=== PATIENT | female | born 1980 | race Caucasian/White ===

== ENCOUNTER 2016-10-17 14:26 | Day surgery (SDC) | payer BC, OTHER ==
[~2016-10-17] VITALS: Ht 180.3 cm; Wt 100.0 kg
[~2016-10-17 14:26] MED LIST: OXYC-302 PO; PREN1TAB56 PO
[2016-10-17] MEDS ORDERED: LACTATED RINGERS 1,000 ML IV SCH ×2 (14:51→15:03)
[2016-10-17 15:00] VITALS: BP 120/84
[2016-10-17 15:34] LABS: HEMOGLOBIN 14.2 g/dL (11.7-16.4)
[2016-10-17] MEDS ORDERED: MISOPROSTOL 200 MCG TABLET ONE (15:35)
[2016-10-17] MEDS ORDERED: OXYTOCIN 10 UNITS/ML, 1ML ONE (15:35)
[2016-10-17] MEDS ORDERED: METHYLERGONOVINE 0.2 MG/ML IM ONE (15:36)
[2016-10-17] MEDS ORDERED: SILVER NITRATE STICK TP ONE (15:36)
[2016-10-17] MEDS ORDERED: FENTANYL PF 100 MCG/2ML ONE ×2 (15:47)
[2016-10-17] MEDS ORDERED: MIDAZOLAM 1 MG/ML, 2ML ONE ×2 (15:47)
[2016-10-17] MEDS ORDERED: ONDANSETRON 2MG/ML, 2ML ONE (16:17)
[2016-10-17] MEDS ORDERED: KETOROLAC 30 MG/1 ML ONE (16:17)
[2016-10-17] MEDS ORDERED: BUPIVACAINE/PF-EPI 0.25% 1:200K ONE (16:31)
[2016-10-17] MEDS ORDERED: OXYcodone 5 MG/5 ML ORAL.SOL UDC PO PRN (17:00)
[2016-10-17] MEDS ORDERED: PROMETHAZINE 25 MG/ML, 1ML IV PRN (17:00)
[2016-10-17] MEDS ORDERED: ACETAMINOPHEN 325 MG TABLET PO PRN (17:00)
[2016-10-17] MEDS ORDERED: FENTANYL PF 100 MCG/2ML IV PRN (17:00)
[2016-10-17] MEDS ORDERED: HYDROmorphone 1 MG/ML, 1ML IV PRN (17:00)
[2016-10-17] MEDS ORDERED: MEPERIDINE/PF 25MG/0.5ML IVPush PRN (17:00)
[2016-10-17] MEDS ORDERED: ONDANSETRON 2MG/ML, 2ML IVPush PRN (17:00)
[2016-10-17] MEDS ORDERED: OXYcodone 5 MG/5 ML ORAL.SOL UDC ONE (17:02)
[2016-10-17] MEDS ORDERED: ACETAMINOPHEN 650 MG/20.3 ML UDC ONE ×2 (17:02→17:05)
[2016-10-17] MEDS ORDERED: ACETAMINOPHEN 325 MG TABLET ONE (17:02)
== END 2016-10-17 18:40 | disposition home or self-care (01) ==
LOC: OUT 14:26 → MERGE 14:26 → OUT 18:40
PROVIDERS: ATTEND Specialist
DX: O02.1 Missed abortion (principal); Z3A.01 Less than 8 weeks gestation of pregnancy; Z82.49 Family history of ischemic heart disease and other diseases of the circulatory system; Z80.9 Family history of malignant neoplasm, unspecified
CPT/HCPCS: 36415; 59820; 85027; J1885; J2405; J7120; 88305; J2250; J3010; J2210; J2590

== ENCOUNTER → 2018-06-01 | Outpatient (CLI) | payer OTHER ==
[2018-06-01 12:51] LABS: BASOPHILS # (AUTO) 0.03 x10^3/uL (0-0.1); BASOPHILS % (AUTO) 0 % (0-1); EOSINOPHILS # (AUTO) 0.16 x10^3/uL (0-0.4); EOSINOPHILS % (AUTO) 2 % (1-7); LYMPHOCYTES % (AUTO) 24 % (22-44); MD NO; MEAN CORPUSCULAR VOLUME 88.1 fL (80-100); MEAN PLATELET VOLUME 8.1 fL (7.4-10.4); MONOCYTES # (AUTO) 0.46 x10^3/uL (0.2-0.8); MONOCYTES % (AUTO) 4 % (2-9); NEUTROPHILS # (AUTO) 7.57 x10^3/uL (1.8-6.8); NEUTROPHILS % (AUTO) 70 % (42-75); PLATELET COUNT 298 x10^3/uL (130-400); RED BLOOD COUNT 4.39 x10^6/uL (3.82-5.3); RED CELL DISTRIBUTION WIDTH 13.7 % (9.6-15.2)
[2018-06-01 13:05] LABS: MICROSCOPIC NOT IND
[2018-06-01 13:10] LABS: CULTURE INDICATED? NO
== END | disposition home or self-care (01) ==
LOC: LAB 12:25
PROVIDERS: ATTEND Student in an Organized Health Care Education/Training Program
DX: Z34.82 Encounter for supervision of other normal pregnancy, second trimester (principal); Z3A.00 Weeks of gestation of pregnancy not specified
CPT/HCPCS: 36415; 81003; 85025; 86592; 86762; 86787; 86850; 86900; 87340; 87806; G0475

== ENCOUNTER → 2018-07-16 | Outpatient (CLI) | payer OTHER ==
[2018-07-16 09:08] LABS: MEAN CORPUSCULAR HEMOGLOBIN 29.7 pg (27.0-34.8); MEAN CORPUSCULAR HGB CONC 33.5 g/dL (32.4-35.8); MEAN CORPUSCULAR VOLUME 88.7 fL (80-100); MEAN PLATELET VOLUME 8.5 fL (7.4-10.4); PLATELET COUNT 262 x10^3/uL (130-400); RED BLOOD COUNT 4.23 x10^6/uL (3.82-5.3); RED CELL DISTRIBUTION WIDTH 13.7 % (9.6-15.2)
== END | disposition home or self-care (01) ==
LOC: LAB 07:54
PROVIDERS: ATTEND Student in an Organized Health Care Education/Training Program
DX: Z34.82 Encounter for supervision of other normal pregnancy, second trimester (principal); Z3A.00 Weeks of gestation of pregnancy not specified
CPT/HCPCS: 36415; 82950; 85027; 86592

== ENCOUNTER 2018-09-29 17:15 | Outpatient (CLI) | payer OTHER ==
[~2018-09-29] VITALS: Ht 180.3 cm; Wt 110.9 kg
[2018-09-29 17:28] VITALS: BP 127/71
[2018-09-29 17:37] LABS: BASOPHILS # (AUTO) 0.05 x10^3/uL (0-0.1); BASOPHILS % (AUTO) 0 % (0-1); EOSINOPHILS # (AUTO) 0.07 x10^3/uL (0-0.4); EOSINOPHILS % (AUTO) 1 % (1-7); LYMPHOCYTES # (AUTO) 3.09 x10^3/uL (1-3.4); LYMPHOCYTES % (AUTO) 22 % (22-44); MD NO; MEAN CORPUSCULAR HEMOGLOBIN 28.7 pg (27.0-34.8); MEAN CORPUSCULAR HGB CONC 33.2 g/dL (32.4-35.8); MEAN CORPUSCULAR VOLUME 86.4 fL (80-100); MEAN PLATELET VOLUME 8.8 fL (7.4-10.4); MONOCYTES # (AUTO) 0.67 x10^3/uL (0.2-0.8); MONOCYTES % (AUTO) 5 % (2-9); NEUTROPHILS % (AUTO) 72 % (42-75); PLATELET COUNT 285 x10^3/uL (130-400); RED BLOOD COUNT 4.62 x10^6/uL (3.82-5.3); RED CELL DISTRIBUTION WIDTH 13.5 % (9.6-15.2)
[2018-09-29 17:47] LABS: MICROSCOPIC NOT IND
[2018-09-29 17:50] LABS: ALANINE AMINOTRANSFERASE 17 U/L (12-78); ALBUMIN 2.9 g/dL (3.4-5.0); ANION GAP 11 mmol/L (5-15); CALCIUM 9.1 mg/dL (8.5-10.1); CHLORIDE 107 mmol/L (98-107); CREATININE 0.67 mg/dL (0.55-1.02)
[2018-09-29 17:53] LABS: ALKALINE PHOSPHATASE 124 U/L (45-117); BILIRUBIN,TOTAL 0.3 mg/dL (0.2-1.0); TOTAL PROTEIN 7.4 g/dL (6.4-8.2)
[2018-09-29] MEDS ORDERED: AMOX1TAB64 PO (17:56)
[2018-09-29 17:58] LABS: CREATININE,URINE RANDOM 29.6 mg/dL
[2018-09-29 18:00] LABS: BILIRUBIN, DIRECT < 0.1 mg/dL (0.1-0.2)
== END 2018-09-29 18:32 | disposition home or self-care (01) ==
LOC: LDOP 17:15
PROVIDERS: ATTEND Student in an Organized Health Care Education/Training Program
DX: O99.413 Diseases of the circulatory system complicating pregnancy, third trimester (principal); R03.0 Elevated blood-pressure reading, without diagnosis of hypertension; Z3A.37 37 weeks gestation of pregnancy
CPT/HCPCS: 36415; 59025; 80053; 81003; 82248; 82570; 84156; 84550; 85025; 99211; G0463

== ENCOUNTER 2018-10-06 12:51 | Inpatient (IN) | payer OTHER ==
[~2018-10-06] VITALS: Ht 180.3 cm; Wt 109.1 kg
[~2018-10-06 12:51] MED LIST changes: +AMOX1TAB64 PO
[2018-10-06] MEDS ORDERED: OXYTOCIN 30U/ 0.9% NaCL 500ML 500 ML IV ONE (14:23)
[2018-10-06] MEDS ORDERED: D5%-LACTATED RINGERS 1,000 ML IV SCH (14:23)
[2018-10-06] MEDS ORDERED: PLEASE ENTER HEIGHT AND WEIGHT MC SCH (14:30)
[2018-10-06] MEDS ORDERED: FENTANYL PF 100 MCG/2ML IV PRN (14:30)
[2018-10-06] MEDS ORDERED: ONDANSETRON 2MG/ML, 2ML IVPush PRN (14:30)
[2018-10-06] MEDS ORDERED: FENTANYL PF 100 MCG/2ML IVPush PRN (14:30)
[2018-10-06] MEDS ORDERED: NEWBORN KIT ONE (14:38)
[2018-10-06] MEDS ORDERED: LIDOCAINE 1%, 20ML ONE (14:38)
[2018-10-06] MEDS ORDERED: MISOPROSTOL 200 MCG TABLET ONE (14:38)
[2018-10-06] MEDS ORDERED: OXYTOCIN 30U/ 0.9% NaCL 500ML 500 ML ONE (14:38)
[2018-10-06 15:04] VITALS: BP 137/69
[2018-10-06 15:05] LABS: BASOPHILS # (AUTO) 0.05 x10^3/uL (0-0.1); BASOPHILS % (AUTO) 0 % (0-1); EOSINOPHILS # (AUTO) 0.13 x10^3/uL (0-0.4); EOSINOPHILS % (AUTO) 1 % (1-7); LYMPHOCYTES # (AUTO) 2.75 x10^3/uL (1-3.4); LYMPHOCYTES % (AUTO) 22 % (22-44); MD NO; MEAN CORPUSCULAR HEMOGLOBIN 29.5 pg (27.0-34.8); MEAN CORPUSCULAR HGB CONC 34.2 g/dL (32.4-35.8); MEAN CORPUSCULAR VOLUME 86.2 fL (80-100); MEAN PLATELET VOLUME 9.1 fL (7.4-10.4); MONOCYTES # (AUTO) 0.92 x10^3/uL (0.2-0.8); MONOCYTES % (AUTO) 7 % (2-9); NEUTROPHILS # (AUTO) 8.94 x10^3/uL (1.8-6.8); NEUTROPHILS % (AUTO) 70 % (42-75); PLATELET COUNT 259 x10^3/uL (130-400); RED BLOOD COUNT 4.52 x10^6/uL (3.82-5.3); RED CELL DISTRIBUTION WIDTH 13.3 % (9.6-15.2)
[2018-10-06] MEDS ORDERED: OXYTOCIN 30U/ 0.9% NaCL 500ML 500 ML IV PRN (18:06)
[2018-10-06] MEDS: LACTATED RINGERS 1,000 ML IV SCH (18:22)
[2018-10-06 20:22] VITALS: BP 128/77
[2018-10-07] MEDS: LACTATED RINGERS 1,000 ML IV SCH ×3 (02:32→19:21)
[2018-10-07] MEDS ORDERED: METOCLOPRAMIDE 5 MG/ML, 2ML ONE (04:08)
[2018-10-07] MEDS ORDERED: SODIUM CITRATE/CITRIC ACID 15 ML UDC ONE (04:08)
[2018-10-07] MEDS ORDERED: OXYTOCIN 30U/ 0.9% NaCL 500ML 500 ML ONE (13:16)
[2018-10-07] MEDS ORDERED: METOCLOPRAMIDE 5 MG/ML, 2ML IV ONE (17:30)
[2018-10-07] MEDS ORDERED: LACTATED RINGERS 1,000 ML IVBOLUS ONE (17:30)
[2018-10-07] MEDS ORDERED: SODIUM CITRATE/CITRIC ACID 15 ML UDC PO ONE (17:30)
[2018-10-07] MEDS ORDERED: OXYTOCIN 10 UNITS/ML, 1ML ONE (17:35)
[2018-10-07] MEDS ORDERED: ONDANSETRON 2MG/ML, 2ML ONE (17:35)
[2018-10-07] MEDS ORDERED: FENTANYL PF 100 MCG/2ML ONE (17:35)
[2018-10-07] MEDS ORDERED: CEFAZOLIN 1,000 MG ONE (17:35)
[2018-10-07] MEDS ORDERED: HYDROmorphone 2 MG/ML, 1ML ONE (17:35)
[2018-10-07] MEDS ORDERED: BISACODYL 10 MG SUPP PR PRN (18:00)
[2018-10-07] MEDS ORDERED: ACETAMINOPHEN 325 MG TABLET PO PRN (18:00)
[2018-10-07] MEDS ORDERED: OXYcodone/APAP 5/325MG TABLET PO PRN ×2 (18:00)
[2018-10-07] MEDS ORDERED: GLYCERIN ADULT SUPP PR PRN (18:00)
[2018-10-07] MEDS ORDERED: CARBOPROST TROMETHAMINE 250 MCG/ML, 1ML IM PRN (18:00)
[2018-10-07] MEDS ORDERED: METOCLOPRAMIDE 5 MG/ML, 2ML IV PRN (18:00)
[2018-10-07] MEDS ORDERED: ONDANSETRON 2MG/ML, 2ML IV PRN (18:00)
[2018-10-07] MEDS ORDERED: MISOPROSTOL 200 MCG TABLET PR PRN (18:00)
[2018-10-07] MEDS ORDERED: METHYLERGONOVINE 0.2 MG/ML IM PRN (18:00)
[2018-10-07] MEDS ORDERED: SODIUM CHLORIDE 0.9% PF 10ML ONE ×2 (18:19)
[2018-10-07] MEDS: KETOROLAC 30 MG/1 ML IV SCH (18:30)
[2018-10-07] MEDS ORDERED: KETOROLAC 30 MG/1 ML ONE (18:53)
[2018-10-07] MEDS: OXYTOCIN 30U/ 0.9% NaCL 500ML 500 ML IV SCH (19:22)
[2018-10-07 21:05] VITALS: BP 116/77
[2018-10-07 22:50] VITALS: BP 109/65
[2018-10-08] MEDS: KETOROLAC 30 MG/1 ML IV SCH ×4 (00:49→19:49)
[2018-10-08] MEDS: LACTATED RINGERS 1,000 ML IV SCH ×5 (02:00→18:00)
[2018-10-08 03:35] LABS: BASOPHILS # (AUTO) 0.02 x10^3/uL (0-0.1); BASOPHILS % (AUTO) 0 % (0-1); EOSINOPHILS # (AUTO) 0.06 x10^3/uL (0-0.4); EOSINOPHILS % (AUTO) 1 % (1-7); LYMPHOCYTES % (AUTO) 25 % (22-44); MD NO; MEAN CORPUSCULAR HEMOGLOBIN 30.1 pg (27.0-34.8); MEAN CORPUSCULAR HGB CONC 34.8 g/dL (32.4-35.8); MEAN CORPUSCULAR VOLUME 86.3 fL (80-100); MEAN PLATELET VOLUME 8.8 fL (7.4-10.4); MONOCYTES # (AUTO) 0.94 x10^3/uL (0.2-0.8); MONOCYTES % (AUTO) 7 % (2-9); NEUTROPHILS # (AUTO) 8.55 x10^3/uL (1.8-6.8); NEUTROPHILS % (AUTO) 68 % (42-75); PLATELET COUNT 200 x10^3/uL (130-400); RED BLOOD COUNT 3.38 x10^6/uL (3.82-5.3); RED CELL DISTRIBUTION WIDTH 13.6 % (9.6-15.2)
[2018-10-08] MEDS: OXYTOCIN 30U/ 0.9% NaCL 500ML 500 ML IV SCH ×3 (03:35→23:35)
[2018-10-08 04:00] VITALS: BP 103/70
[2018-10-08 07:15] VITALS: BP 99/63
[2018-10-08] MEDS: DOCUSATE 100 MG CAPSULE PO PRN ×2 (07:38→19:49)
[2018-10-08] MEDS: PRENATAL VIT/IRON/FA 1 EACH TABLET PO SCH (07:38)
[2018-10-08 12:10] VITALS: BP 101/68
[2018-10-08 16:21] VITALS: BP 114/63
[2018-10-08 19:45] VITALS: BP 105/68
[2018-10-09] MEDS: KETOROLAC 30 MG/1 ML IV SCH ×3 (01:25→13:31)
[2018-10-09] MEDS: LACTATED RINGERS 1,000 ML IV SCH ×4 (02:00→10:00)
[2018-10-09] MEDS: DOCUSATE 100 MG CAPSULE PO PRN (07:44)
[2018-10-09] MEDS: PRENATAL VIT/IRON/FA 1 EACH TABLET PO SCH (09:00)
[2018-10-09] MEDS: OXYTOCIN 30U/ 0.9% NaCL 500ML 500 ML IV SCH (09:35)
[2018-10-09] MEDS ORDERED: IBUP-1223 PO (12:33)
[2018-10-09] MEDS ORDERED: IBUPROFEN 800 MG TABLET PO PRN (18:00)
[2018-10-09] MEDS ORDERED: IBUPROFEN 600 MG TABLET PO PRN (18:00)
== END 2018-10-09 15:08 | disposition home or self-care (01) | DRG 788 ==
LOC: LDOP 12:51 → LDIP 14:26 → 2NW 10-07 20:52
PROVIDERS: ADMIT Student in an Organized Health Care Education/Training Program; ATTEND Student in an Organized Health Care Education/Training Program
PROC: 10907ZC Drainage of Amniotic Fluid, Therapeutic from Products of Conception, Via Natural or Artificial Opening (ICD-10-PCS; 2018-10-06)
PROC: 3E033VJ Introduction of Other Hormone into Peripheral Vein, Percutaneous Approach (ICD-10-PCS; 2018-10-06)
PROC: 10D00Z1 Extraction of Products of Conception, Low, Open Approach (ICD-10-PCS; principal; 2018-10-07)
DX: O34.211 Maternal care for low transverse scar from previous cesarean delivery (principal); O42.02 Full-term premature rupture of membranes, onset of labor within 24 hours of rupture; O62.1 Secondary uterine inertia; O66.41 Failed attempted vaginal birth after previous cesarean delivery; O69.1XX0 Labor and delivery complicated by cord around neck, with compression, not applicable or unspecified; Z3A.38 38 weeks gestation of pregnancy; Z37.0 Single live birth
CPT/HCPCS: 36415; J7121; 85025; 86850; 86900; 89060; G0378; J0690; J1170; J1885; J2405; J3010; J2590; J2765; J7120; Q0114

== ENCOUNTER → 2019-06-22 | Outpatient (CLI) | payer OTHER ==
[~2019-06-22] MED LIST changes: +IBUP-1223 PO
[2019-06-22 14:47] LABS: BASOPHILS # (AUTO) 0.05 x10^3/uL (0-0.1); BASOPHILS % (AUTO) 1 % (0-1); EOSINOPHILS # (AUTO) 0.24 x10^3/uL (0-0.4); EOSINOPHILS % (AUTO) 3 % (1-7); LYMPHOCYTES # (AUTO) 3.14 x10^3/uL (1-3.4); LYMPHOCYTES % (AUTO) 41 % (22-44); MD NO; MEAN CORPUSCULAR HEMOGLOBIN 29.5 pg (27.0-34.8); MEAN CORPUSCULAR HGB CONC 33.3 g/dL (32.4-35.8); MEAN CORPUSCULAR VOLUME 88.4 fL (80-100); MEAN PLATELET VOLUME 8.4 fL (7.4-10.4); MONOCYTES # (AUTO) 0.55 x10^3/uL (0.2-0.8); MONOCYTES % (AUTO) 7 % (2-9); NEUTROPHILS # (AUTO) 3.77 x10^3/uL (1.8-6.8); NEUTROPHILS % (AUTO) 49 % (42-75); PLATELET COUNT 315 x10^3/uL (130-400); RED BLOOD COUNT 4.73 x10^6/uL (3.82-5.3); RED CELL DISTRIBUTION WIDTH 13.5 % (9.6-15.2)
[2019-06-22 14:57] LABS: ALANINE AMINOTRANSFERASE 25 U/L (12-78); ALBUMIN 3.9 g/dL (3.4-5.0); ANION GAP 7 mmol/L (5-15); CALCIUM 8.9 mg/dL (8.5-10.1); CHLORIDE 107 mmol/L (98-107)
[2019-06-22 15:06] LABS: HEMOGLOBIN A1C 5.5 % (4.2-6.3)
[2019-06-22 15:07] LABS: ALKALINE PHOSPHATASE 79 U/L (45-117); BILIRUBIN,TOTAL 0.3 mg/dL (0.2-1.0); CREATININE 0.89 mg/dL (0.55-1.02); FREE T4 (FREE THYROXINE) 0.92 ng/dL (0.76-1.46)
== END | disposition home or self-care (01) ==
LOC: LAB 14:31
PROVIDERS: ATTEND Nurse Practitioner Family
CPT/HCPCS: 36415; 80053; 82306; 83036; 84439; 84443; 85025

== ENCOUNTER → 2019-09-19 | Outpatient (CLI) | payer OTHER | END | disposition home or self-care (01) | LOC: CFH 15:47 | PROVIDERS: ATTEND Internal Medicine Cardiovascular Disease | DX: I08.3 Combined rheumatic disorders of mitral, aortic and tricuspid valves (principal); R01.1 Cardiac murmur, unspecified | CPT/HCPCS: 93306 ==

== ENCOUNTER 2019-12-23 09:54 | Outpatient (CLI) | payer OTHER | END 2019-12-23 23:59 | disposition home or self-care (01) | LOC: CFH 09:54 | PROVIDERS: ATTEND Nurse Practitioner Family | DX: R22.1 Localized swelling, mass and lump, neck (principal); M79.89 Other specified soft tissue disorders | CPT/HCPCS: 76536 ==

== ENCOUNTER → 2020-03-27 | Outpatient (CLI) | payer OTHER ==
[~2020-03-27] MED LIST changes: +OMNIPAQUE 350 MG/ML, 100ML BOTTLE ONE
== END | disposition home or self-care (01) ==
LOC: CFH 14:03
PROVIDERS: ATTEND Otolaryngology
DX: E04.1 Nontoxic single thyroid nodule (principal); R22.0 Localized swelling, mass and lump, head
CPT/HCPCS: 70491; Q9967

== ENCOUNTER 2020-04-03 12:32 | Outpatient (CLI) | payer OTHER ==
[~2020-04-03 12:32] MED LIST changes: -OMNIPAQUE 350 MG/ML, 100ML BOTTLE ONE
[2020-04-03] MEDS ORDERED: SODIUM BICARBONATE 4.2%, 5ML ONE (13:28)
[2020-04-03] MEDS ORDERED: LIDOCAINE 1%, 20ML ONE (13:28)
== END 2020-04-03 23:59 | disposition home or self-care (01) ==
LOC: RAD 12:32
PROVIDERS: ATTEND Otolaryngology
DX: R59.1 Generalized enlarged lymph nodes (principal)
CPT/HCPCS: 10005; 88173; J3490; 76942

== ENCOUNTER → 2020-11-07 | Outpatient (CLI) | payer OTHER ==
[~2020-11-07] MED LIST changes: -OXYC-302 PO; +OXYC1TAB14 PO
== END | disposition home or self-care (01) ==
LOC: RAD 09:53
PROVIDERS: ATTEND Otolaryngology
DX: R59.1 Generalized enlarged lymph nodes (principal)
CPT/HCPCS: 76536